=== PATIENT | female | born 1940 | race Caucasian/White ===

== ENCOUNTER 2017-04-27 18:06 | Inpatient (IN) | payer OTHER, MEDICARE ==
[~2017-04-27] VITALS: Ht 157.5 cm; Wt 52.6 kg
--- NOTE | ~2017-04-27 | H ---
[facility] [place] [address] HISTORY AND PHYSICAL Name: HARSH MCKEON Room #: 440-P ADM IN M.R.#: [id number] Admission: 04/27/17 Attend Phys: Gaston Tolentino Discharge: Date of : 40 Report #: [id number] THIS REPORT FOR: //name// CC: Christiano Waggoner DATE OF SERVICE: 04/27/2017 ATTENDING PHYSICIAN: Dr. Randolph Waggoner. CHIEF COMPLAINT: Shortness of breath. HISTORY OF PRESENT ILLNESS: The patient is a 77-year-old female admitted from the office with shortness of breath. She had several days of a productive cough. No fever. Had some wheezing. She was mildly hypoxic in the office with sats 91% on room air with wheezing and trouble breathing. She was admitted for pulmonary treatment. 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 PAST SURGICAL HISTORY: None. FAMILY HISTORY: Noncontributory. SOCIAL HISTORY: No chronic alcohol or tobacco use. ALLERGIES: None. MEDICATIONS: Synthroid 50 mcg, Combivent, albuterol nebulizer, Protonix 40 mg, lisinopril and hydrochlorothiazide 20/25 mg daily. REVIEW OF SYSTEMS: She denies headache, chest pain, abdominal pain, nausea, vomiting, diarrhea, constipation, dysuria. OBJECTIVE: VITAL SIGNS: Temperature 36.7, pulse 118, respirations 20, blood pressure 119/98, O2 sat 90% on 2.5 liters oxygen. GENERAL: She is awake and alert. HEAD AND NECK: Unremarkable. LUNGS: Anteriorly clear. HEART: Regular. ABDOMEN: Soft, normoactive bowel sounds. EXTREMITIES: No edema. NEUROLOGIC: Alert and oriented. Strength intact. ASSESSMENT: 1. Chronic obstructive pulmonary disease exacerbation. [facility] [address] [place] [address] HISTORY AND PHYSICAL Name: HARSH MCKEON Room #: 440-P ADM IN M.R.#: [id number] Admission: 04/27/17 Attend Phys: Gaston Tolentino Discharge: Date of : 40 Report #: [id number] 2. Hypertension. PLAN: Chest x-ray and lab works warranted. Lovenox for DVT prophylaxis and we will continue pulmonary treatments and add empiric antibiotics. <ELECTRONICALLY SIGNED> By: Estevan Katz MD 04/28/17 1521 [id number] Estevan Katz MD /nt
--- NOTE | ~2017-04-27 | EKG ---
[place] [address] [facility] [place] [address] ELECTROCARDIOGRAM REPORT Name: MIKEHARSH Room #: 440-P ADM IN M.R.#: [id number] Admission: 04/27/17 Attend Phys: Gaston Tolentino Discharge: Date of : 40 Report #: [id number] THIS REPORT FOR: //name// [facility] Test Date: 2017-04-28 Test Time: 10:40:46 Pat Name: HARSH MCKEON Department: Room: 440 P Gender: F [employer]: Sebas ALVAREZ : 1940 Requested By: Estevan Katz Order Number: [id number] MD: Dustin Bustamante Measurements Intervals [place] Rate: 114 P: 79 LA: 134 QRS: 10 QRSD: 84 T: -83 QT: 280 QTc: 386 Interpretive Statements Sinus tachycardia Right atrial enlargement Borderline low voltage, extremity leads Nonspecific ST and T wave abnormality No previous ECG available for comparison Electronically Signed On 04-29-2017 7:51:40 [employer] by Dustin Bustamante [email or web address] <ELECTRONICALLY SIGNED> By: Dustin Bustamante MD, [facility] 04/29/17 0751 [id number] 1040 Dsutin Bustamante MD, [facility] /EPI
[2017-04-27] MEDS ORDERED: ALBUTEROL2.5 MG/31 INH (19:34)
[2017-04-27] MEDS ORDERED: COMBIVENT RESPIM4 GM INH (19:36)
[2017-04-27] MEDS ORDERED: LISINOPRIL-HCT1 EAC2 PO (19:37)
[2017-04-27] MEDS ORDERED: SYNTHROID50 MCG PO (19:38)
[2017-04-27] MEDS ORDERED: PROTONIX40 M1 PO (19:38)
[2017-04-27 20:06] VITALS: BP 121/62
[2017-04-28 00:55] VITALS: BP 107/46
[2017-04-28 03:42] VITALS: BP 89/39
[2017-04-28 08:37] VITALS: BP 119/98
[2017-04-28 11:39] LABS: HEMATOCRIT 42.2 % (37.0-47.0); MCH 28.6 pg (26.0-34.0); MCHC 33.2 g/dL (28.0-37.0); RBC 4.9 mil/uL (4.20-5.00); RDW 13.9 % (10.5-14.5); WBC 15.7 thou/uL (4.0-11.0)
[2017-04-28 11:52] LABS: CALCIUM 9.4 mg/dL (8.5-10.1); CREATININE 1.7 mg/dL (0.6-1.0); POTASSIUM 4.8 mmol/L (3.5-5.1)
[2017-04-28 16:11] VITALS: BP 108/56
[2017-04-28 19:27] VITALS: BP 113/57
[2017-04-29 03:40] VITALS: BP 107/53
[2017-04-29 06:30] LABS: CALCIUM 9.4 mg/dL (8.5-10.1); CREATININE 1.5 mg/dL (0.6-1.0); POTASSIUM 4.4 mmol/L (3.5-5.1)
[2017-04-29 07:38] VITALS: BP 117/45
[2017-04-29 16:05] VITALS: BP 110/49
[2017-04-29 17:27] VITALS: BP 108/55
[2017-04-29 21:57] VITALS: BP 113/49
[2017-04-30 04:52] VITALS: BP 116/56
[2017-04-30 06:35] LABS: CALCIUM 9.7 mg/dL (8.5-10.1); CREATININE 1.4 mg/dL (0.6-1.0); POTASSIUM 4.4 mmol/L (3.5-5.1)
[2017-04-30 09:18] VITALS: BP 120/61
[2017-04-30 16:39] VITALS: BP 100/56
[2017-04-30 19:45] VITALS: BP 124/62
[2017-05-01 03:54] VITALS: BP 115/46
[2017-05-01 05:55] LABS: HEMATOCRIT 41.4 % (37.0-47.0); HEMOGLOBIN 13.8 gm/dL (12.0-15.0); MCH 28.8 pg (26.0-34.0); MCHC 33.3 g/dL (28.0-37.0); MCV 86.4 fL (80.0-100.0); RBC 4.8 mil/uL (4.20-5.00); WBC 15.2 thou/uL (4.0-11.0)
[2017-05-01 05:59] LABS: CALCIUM 9.1 mg/dL (8.5-10.1); CREATININE 1.4 mg/dL (0.6-1.0); POTASSIUM 4.3 mmol/L (3.5-5.1)
[2017-05-01 08:40] VITALS: BP 130/64
[2017-05-01] MEDS ORDERED: MUCINEX600 MG PO (10:07)
[2017-05-01] MEDS ORDERED: CEFUROXIME500 MG PO (10:08)
[2017-05-01] MEDS ORDERED: PREDNISONE 20 M20 MG PO (10:09)
[2017-05-01 15:35] VITALS: BP 117/72
[2017-05-01 16:45] VITALS: BP 117/72
[2017-05-01 19:14] VITALS: BP 120/65
[2017-05-02 03:12] VITALS: BP 124/64
[2017-05-02 06:43] VITALS: BP 130/52
[2017-05-02 08:41] VITALS: BP 117/72
[2017-05-02 10:07] VITALS: BP 117/72
== END 2017-05-02 10:00 | disposition home or self-care (01) | DRG 189 ==
LOC: 4S 18:06
PROVIDERS: Internal Medicine Geriatric Medicine
DX: J96.20 Acute and chronic respiratory failure, unspecified whether with hypoxia or hypercapnia (principal); J44.1 Chronic obstructive pulmonary disease with (acute) exacerbation; I10 Essential (primary) hypertension; Z79.899 Other long term (current) drug therapy
CPT/HCPCS: 10102